=== PATIENT | male | born 1990 | race Caucasian/White ===

== ENCOUNTER 2016-12-29 11:40 | Emergency (ER) | payer OTHER ==
[2016-12-29] MEDS ORDERED: Lidocaine 1% 20 ML MDV INJECT ONE (12:21)
[2016-12-29] MEDS ORDERED: Bacitracin Oint 1 GM U/D Packet TOP ONE (12:22)
[2016-12-29] MEDS ORDERED: Diphtheria,Pertussis(Acell),Tetanus Vaccine 0.5 ML Syringe IM ONE (13:13)
--- NOTE | 2016-12-29 13:13 | EDM.PDOC ---
ED HPI GENERAL MEDICAL PROBLEM - General Chief Complaint: Laceration Stated Complaint: CUT Time Seen by Provider: 12/29/16 12:15 Source of Information: Reports: Patient History Limitations: Reports: No Limitations - History of Present Illness INITIAL COMMENTS - FREE TEXT/NARRATIVE: HISTORY AND PHYSICAL: History of present illness: [Patient comes to the emergency room complaining of a laceration to the tip of his right thumb. He was working with a coworker cutting some wire when his coworker accidentally cut him with wire snaps. Complaints of bleeding and pain to the tip of his right thumb. Part of his thumbnail was cut off and the injury. He cannot remember when his last tetanus was. No other complaints or concerns. ] Review of systems: As per history of present illness and below otherwise all systems reviewed and negative. Past medical history: As per history of present illness and as reviewed below otherwise noncontributory. Surgical history: As per history of present illness and as reviewed below otherwise noncontributory. Social history: No reported history of drug or alcohol abuse. Family history: As per history of present illness and as reviewed below otherwise noncontributory. Physical exam: HEENT: Atraumatic, normocephalic. Extremities: 2cm flap type laceration through the tip of his R thumb, extending into distal aspect of thumbnail. 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 Wound is closed w/o difficulty. See procedure note. Other phalanges are atraumatic. Neurovascular unremarkable. Neuro: Awake, alert, oriented. Motor and sensory unremarkable throughout. Exam nonfocal. Therapeutics: [TdaP] Impression: [R thumb laceration] Plan: [Wound is closed without difficulty. see procedure note. Tetanus is updated in the ER. Wound care is reviewed with patient. Return to ER in 10 days to have stitches removed. Patient verbalizes understanding of today's discussion. All concerns are addressed.] Definitive disposition and diagnosis as appropriate pending reevaluation and review of above. Right Hand Pain Score (Numeric/FACES): 5 - Related Data Allergies Allergy/AdvReac Type Severity Reaction Status Date / Time No Known Allergies Allergy Verified 12/29/16 12:12 Home Meds: Home Meds . [No Known Home Meds] 12/29/16 [History] Past Medical History HEENT History: Reports: None Cardiovascular History: Reports: None Respiratory History: Reports: None Gastrointestinal History: Reports: None Genitourinary History: Reports: None Musculoskeletal History: Reports: Fracture Other Musculoskeletal History: arm x 2 Neurological History: Reports: None Psychiatric History: Reports: None Endocrine/Metabolic History: Reports: None Hematologic History: Reports: None Immunologic History: Reports: None Oncologic (Cancer) History: Reports: None Dermatologic History: Reports: None - Past Surgical History Head Surgeries/Procedures: Reports: None HEENT Surgical History: Reports: None Cardiovascular Surgical History: Reports: None Respiratory Surgical History: Reports: None GI Surgical History: Reports: Hernia, Inguinal Male Surgical History: Reports: None Endocrine Surgical History: Reports: None Musculoskeletal Surgical History: Reports: None Social & Family History - Tobacco Use Smoking Status *Q: Never Smoker Second Hand Smoke Exposure: No - Recreational Drug Use Recreational Drug Use: No ED ROS GENERAL - Review of Systems Review Of Systems: ROS reveals no pertinent complaints other than HPI. ED EXAM, SKIN/RASH Exam: See Below ED SKIN PROCEDURES - Laceration/Wound Repair Right Distal Finger Lac/wound length in cm: 2 Appearance: subcutaneous Distal NVT: neuro & vascular intact, no tendon injury Anesthetic Type: local Local anesthesia - Lidocaine (Xylocaine): 1% plain Local anesthetic volume: 4cc Skin prep: chlorhexidine (hibiciens), providone-iodine (betadine), isopropyl alcohol (alcohol), saline, sterile drape Exploration/Debridement/Repair: wound explored, in a bloodless field, no foreign material found Closed with: sutures Suture size: 4-0 # of sutures: 5 Drain placement: No Sterile dressing applied: nurse Tetanus status addressed: Yes Complications: No Course - Vital Signs Last Recorded V/S: Last Vital Signs Temp 98.2 F 12/29/16 12:09 Pulse 78 12/29/16 12:09 Resp 18 12/29/16 12:09 BP 117/69 12/29/16 12:09 Pulse Ox 96 12/29/16 12:09 - Orders/Labs/Meds Orders: Active Orders 24 hr Category Date Time Status Vaccines to be Administered [RC] PER UNIT ROUTINE Care 12/29/16 13:13 Active Diphth,Pertuss(Acell),Tet Vac [Adacel] Med 12/29/16 13:13 Once 0.5 ml IM .ONCE ONE Medication Orders Diphtheria/Tetanus/Acell Pertussis (Adacel) 0.5 ml IM .ONCE ONE Stop: 12/29/16 13:14 Meds: Medications Generic Name Dose Route Start Last Admin Trade Name Freq PRN Reason Stop Dose Admin Diphtheria/Tetanus/Acell Pertussis 0.5 ml 12/29/16 13:13 Adacel IM 12/29/16 13:14 .ONCE ONE Discontinued Medications Generic Name Dose Route Start Last Admin Trade Name Freq PRN Reason Stop Dose Admin Bacitracin 1 dose 12/29/16 12:22 Bacitracin Oint 1 Gm TOP 12/29/16 12:23 ONETIME ONE Lidocaine HCl 20 ml 12/29/16 12:21 Xylocaine 1% INJECT 12/29/16 12:22 ONETIME ONE Departure - Departure Time of Disposition: 13:15 Disposition: Home, Self-Care 01 Condition: good Clinical Impression: Laceration of right thumb Qualifiers: Encounter type: initial encounter Qualified Code(s): S61.011A - Laceration without foreign body of right thumb without damage to nail, initial encounter - Discharge Information Instructions: Laceration Care, Adult, Sutured Wound Care, [id number] Referrals: PCP,None [Primary Care Provider] - Forms: ED Department Discharge Additional Instructions: The following information is given to patients seen in the emergency department who are being discharged to home. This information is to outline your options for follow-up care. We provide all patients seen in our emergency department with a follow-up referral. The need for follow-up, as well as the timing and circumstances, are variable depending upon the specifics of your emergency department visit. If you don't have a primary care physician on staff, we will provide you with a referral. We always advise you to contact your personal physician following an emergency department visit to inform them of the circumstance of the visit and for follow-up with them and/or the need for any referrals to a consulting specialist. The emergency department will also refer you to a specialist when appropriate. This referral assures that you have the opportunity for follow-up care with a specialist. All of these measure are taken in an effort to provide you with optimal care, which includes your follow-up. Under all circumstances we always encourage you to contact your private physician who remains a resource for coordinating your care. When calling for follow-up care, please make the office aware that this follow-up is from your recent emergency room visit. If for any reason you are refused follow-up, please contact the [facility] emergency department at and asked to speak to the emergency department charge nurse. [facility] [address] [place] [id number] Followup with your primary care provider at the clinic listed above in 48-72 hours. Keep hand clean and dry for the next 24 hours. After that you may shower normally. Apply triple antibiotic ointment or bacitracin tear wound twice daily. Keep covered and protected from reinjury. Return to the ER in 10 days to have sutures removed. Return to ER as needed as discussed. - My Orders Last 24 Hours: My Active Orders 12/29/16 13:13 Vaccines to be Administered [RC] PER UNIT ROUTINE Diphth,Pertuss(Acell),Tet Vac [Adacel] 0.5 ml IM .ONCE ONE - Assessment/Plan Last 24 Hours: My Active Orders 12/29/16 13:13 Vaccines to be Administered [RC] PER UNIT ROUTINE Diphth,Pertuss(Acell),Tet Vac [Adacel] 0.5 ml IM .ONCE ONE
== END 2016-12-29 13:49 | disposition home or self-care (01) ==
LOC: MW.ED 11:40
DX: S61.011A Laceration without foreign body of right thumb without damage to nail, initial encounter (principal); W45.8XXA Other foreign body or object entering through skin, initial encounter; Y92.69 Other specified industrial and construction area as the place of occurrence of the external cause; Y99.0 Civilian activity done for income or pay; Z23 Encounter for immunization
CPT/HCPCS: 12001; 90471; 90715; 99282; 99283-25